=== PATIENT | male | born 1990 | race African-American/Black ===

== ENCOUNTER 2020-07-11 00:20 | Inpatient (IN) | payer MEDICAID ==
[~2020-07-11] VITALS: Ht 190.5 cm; Wt 78.0 kg
[2020-07-11 02:39] LABS: BASOPHILS % 1.6 % (0.0-2.0); EOSINOPHILS % 1.3 % (0.0-5.0); HEMATOCRIT. 39.5 % (42.0-52.0); HEMOGLOBIN. 12.9 g/dL (14.0-18.0); MEAN CORPUSCULAR HEMOGLOBIN 32.7 pg (28.0-32.0); MEAN CORPUSCULAR VOLUME 100.1 fL (80.0-94.0); MEAN PLATELET VOLUME 8.3 fl (7.4-10.4); MONOCYTES % 7.4 % (2.0-8.0); NEUTROPHILS % 55.7 % (40.0-76.0); PLATELET 189 x1000/uL (130-400); RED BLOOD CELL COUNT 3.95 mill/uL (4.7-6.1); RED CELL DISTRIBUTION WIDTH 15.6 % (11.6-14.6)
[2020-07-11 02:45] LABS: CHLORIDE 116 mEq/L (98-107)
[2020-07-11 03:05] LABS: CLARITY URINE CLOUDY (CLEAR); COLOR URINE ORANGE (YELLOW); KETONES URINE NEGATIVE (NEGATIVE); LEUKOCYTE ESTERASE URINE 1+ (NEGATIVE); NITRITE URINE POSITIVE (NEGATIVE); OCCULT BLOOD URINE 3+ (NEGATIVE); PH URINE 5.5 (4.5-8.0); PROTEIN URINE 4+ (NEGATIVE); SPECIFIC GRAVITY URINE 1.041 (1.005-1.030)
[2020-07-11 03:11] LABS: PARTIAL THROMBOPLASTIN TIME 48.1 sec (23.4-31.0)
[2020-07-11] MEDS ORDERED: CEFTRIAXONE 1 G PREMIX 50 ML IV ONE (03:30)
[2020-07-11] MEDS ORDERED: IOHEXOL-350 100 ML BOTTLE ONE (06:43)
[2020-07-11] MEDS ORDERED: ACETAMINOPHEN 325MG TABLET PO PRN (08:30)
[2020-07-11] MEDS ORDERED: ONDANSETRON HCL 4MG/2ML INJ IV PRN (08:30)
[2020-07-11] MEDS ORDERED: FUROSEMIDE 40MG/4ML VIAL IVP SCH (09:00)
[2020-07-11 09:37] LABS: *BARBITURATES SCREEN URINE NEGATIVE (NEGATIVE); *BENZODIAZEPINES SCREEN URINE NEGATIVE (NEGATIVE); *COCAINE SCREEN URINE NEGATIVE (NEGATIVE); METHADONE URINE SCREEN NEGATIVE (NEGATIVE); OPIATES URINE SCREEN NEGATIVE (NEGATIVE); PHENCYCLIDINE URINE SCREEN NEGATIVE (NEGATIVE)
[2020-07-11 09:38] LABS: *AMPHETAMINES SCREEN URINE NEGATIVE (NEGATIVE); CANNABINOID URINE SCREEN NEGATIVE (NEGATIVE)
[2020-07-11 09:50] VITALS: BP 127/94
[2020-07-11 10:41] VITALS: BP 127/94
[2020-07-11] MEDS ORDERED: ASPI-1158 PO (11:26)
[2020-07-11 12:00] VITALS: BP 114/84
[2020-07-11] MEDS ORDERED: GABA-529 PO (13:09)
[2020-07-11] MEDS ORDERED: ESCI5SOL2 PO (13:19)
[2020-07-11] MEDS ORDERED: FOLI-43 PO (13:19)
[2020-07-11] MEDS ORDERED: LEVO75TA7 PO (13:19)
[2020-07-11] MEDS ORDERED: ERGO2000 PO (13:19)
[2020-07-11] MEDS ORDERED: FERR325T6 MT (13:19)
[2020-07-11] MEDS ORDERED: METO-385 PO (13:19)
[2020-07-11] MEDS ORDERED: WARF6TAB22 PO (13:30)
[2020-07-11] MEDS ORDERED: SILV50CR31 TP (13:30)
[2020-07-11 16:00] VITALS: BP 112/83
[2020-07-11 20:00] VITALS: BP 115/84
[2020-07-11] MEDS: FUROSEMIDE 40MG/4ML VIAL IVP SCH (20:22)
[2020-07-11] MEDS: METOPROLOL TARTRATE 25MG TABLET PO SCH (21:23)
[2020-07-12] VITALS: BP 106/54
[2020-07-12 04:00] VITALS: BP 101/52
[2020-07-12] MEDS: CEFTRIAXONE 1,000 MG in DEXTROSE 5% WATER 50 ML IV SCH (04:47)
[2020-07-12] MEDS ORDERED: CEFTRIAXONE 1 G PREMIX 50 ML IV SCH (05:00)
[2020-07-12 05:47] LABS: CHLORIDE 114 mEq/L (98-107)
[2020-07-12 06:14] LABS: BASOPHILS % 1.7 % (0.0-2.0); EOSINOPHILS % 2.2 % (0.0-5.0); HEMATOCRIT. 37.9 % (42.0-52.0); HEMOGLOBIN. 12.5 g/dL (14.0-18.0); LYMPHOCYTES % 25.4 % (20.0-50.0); MEAN CORPUSCULAR HEMOGLOBIN 32.8 pg (28.0-32.0); MEAN CORPUSCULAR VOLUME 99.5 fL (80.0-94.0); MEAN PLATELET VOLUME 8.7 fl (7.4-10.4); NEUTROPHILS % 63.7 % (40.0-76.0); PLATELET 192 x1000/uL (130-400); RED BLOOD CELL COUNT 3.81 mill/uL (4.7-6.1); RED CELL DISTRIBUTION WIDTH 15.5 % (11.6-14.6)
[2020-07-12] MEDS: FUROSEMIDE 40MG/4ML VIAL IVP SCH ×2 (06:28→16:55)
[2020-07-12 07:44] LABS: INR 4.1
[2020-07-12 08:00] VITALS: BP 109/81
[2020-07-12] MEDS: METOPROLOL TARTRATE 25MG TABLET PO SCH ×2 (09:13→21:00)
[2020-07-12] MEDS: ASPIRIN 81MG TABLET PO SCH (11:39)
[2020-07-12 12:00] VITALS: BP 127/60
[2020-07-12 16:00] VITALS: BP 103/81
[2020-07-12] MEDS: SILVER SULFADIAZINE 1% CREAM 25GM TOP SCH ×2 (16:54→23:13)
[2020-07-12] MEDS: HYDROCODONE/ACETAMINOPHEN 5/325MG TABLET PO PRN (16:59)
[2020-07-12 20:00] VITALS: BP 103/76
[2020-07-13] VITALS: BP 98/75
[2020-07-13 04:00] VITALS: BP 105/61
[2020-07-13] MEDS: LEVOTHYROXINE SODIUM 75MCG TABLET PO SCH (05:22)
[2020-07-13] MEDS: CEFTRIAXONE 1,000 MG in DEXTROSE 5% WATER 50 ML IV SCH (05:23)
[2020-07-13] MEDS: FUROSEMIDE 40MG/4ML VIAL IVP SCH ×2 (06:10→18:22)
[2020-07-13 06:52] LABS: CHLORIDE 112 mEq/L (98-107)
[2020-07-13 06:56] LABS: BASOPHILS % 1.5 % (0.0-2.0); EOSINOPHILS % 3.8 % (0.0-5.0); HEMATOCRIT. 38.7 % (42.0-52.0); HEMOGLOBIN. 12.8 g/dL (14.0-18.0); LYMPHOCYTES % 36.3 % (20.0-50.0); MEAN PLATELET VOLUME 8.6 fl (7.4-10.4); MONOCYTES % 8.9 % (2.0-8.0); NEUTROPHILS % 49.5 % (40.0-76.0); PLATELET 171 x1000/uL (130-400); RED BLOOD CELL COUNT 3.87 mill/uL (4.7-6.1); RED CELL DISTRIBUTION WIDTH 15.4 % (11.6-14.6)
[2020-07-13 07:19] LABS: INR 3.8; PROTHROMBIN TIME 37.2 sec (9.6-11.0)
[2020-07-13 08:00] VITALS: BP 103/87
[2020-07-13] MEDS: METOPROLOL TARTRATE 25MG TABLET PO SCH (09:00)
[2020-07-13] MEDS: ASPIRIN 81MG TABLET PO SCH (09:14)
[2020-07-13] MEDS: SILVER SULFADIAZINE 1% CREAM 25GM TOP SCH ×2 (09:17→18:28)
[2020-07-13 12:00] VITALS: BP_SYST 101; BP_SYST 98; BP_DIAS 52; BP_DIAS 60
[2020-07-13] MEDS: HYDROCODONE/ACETAMINOPHEN 5/325MG TABLET PO PRN (15:24)
[2020-07-13 16:00] VITALS: BP 103/67
[2020-07-13 20:00] VITALS: BP 103/72
[2020-07-14] VITALS: BP 105/76
[2020-07-14] MEDS: SILVER SULFADIAZINE 1% CREAM 25GM TOP SCH ×2 (00:05→08:41)
[2020-07-14 04:00] VITALS: BP 107/75
[2020-07-14] MEDS: CEFTRIAXONE 1,000 MG in DEXTROSE 5% WATER 50 ML IV SCH (04:21)
[2020-07-14] MEDS: FUROSEMIDE 40MG/4ML VIAL IVP SCH (06:18)
[2020-07-14 06:47] LABS: EOSINOPHILS % 4.1 % (0.0-5.0); HEMATOCRIT. 34.3 % (42.0-52.0); HEMOGLOBIN. 11.6 g/dL (14.0-18.0); LYMPHOCYTES % 28.7 % (20.0-50.0); MEAN CORPUSCULAR HEMOGLOBIN 32.7 pg (28.0-32.0); MEAN CORPUSCULAR VOLUME 96.8 fL (80.0-94.0); MEAN PLATELET VOLUME 8.4 fl (7.4-10.4); MONOCYTES % 7.1 % (2.0-8.0); NEUTROPHILS % 59.1 % (40.0-76.0); PLATELET 169 x1000/uL (130-400); RED BLOOD CELL COUNT 3.54 mill/uL (4.7-6.1); RED CELL DISTRIBUTION WIDTH 15.1 % (11.6-14.6)
[2020-07-14 07:02] LABS: INR 2.8; PROTHROMBIN TIME 27.6 sec (9.6-11.0)
[2020-07-14 07:18] LABS: CHLORIDE 110 mEq/L (98-107)
[2020-07-14] MEDS: LEVOTHYROXINE SODIUM 75MCG TABLET PO SCH (07:44)
[2020-07-14] MEDS ORDERED: POTA20TA82 MT (08:33)
[2020-07-14] MEDS ORDERED: FURO-151 MT (08:33)
[2020-07-14] MEDS: ASPIRIN 81MG TABLET PO SCH (08:38)
[2020-07-14 08:56] VITALS: BP 107/81
[2020-07-14 12:00] VITALS: BP 106/77
[2020-07-14 12:07] VITALS: BP 109/67
[2020-07-14] MEDS ORDERED: CARV3.1242 MT (12:17)
[2020-07-14] MEDS ORDERED: LOSA25TA26 MT (12:17)
[2020-07-14 13:16] VITALS: BP 109/67
== END 2020-07-14 14:07 | disposition home health service (06) | DRG 720 ==
LOC: ER 00:20 → 7WST 04:59 → EDBEDREQ 05:15 → EDBEDREQTM 05:15 → ENRESERV 07:47 → ER 09:57 → 5WST 07-12 20:47
PROVIDERS: ADMIT Internal Medicine; ATTEND Internal Medicine
PROC: 0JB70ZZ Excision of Back Subcutaneous Tissue and Fascia, Open Approach (ICD-10-PCS; principal; 2020-07-13)
DX: A41.9 Sepsis, unspecified organism (principal); D64.9 Anemia, unspecified; E44.0 Moderate protein-calorie malnutrition; D68.59 Other primary thrombophilia; E87.8 Other disorders of electrolyte and fluid balance, not elsewhere classified; I50.43 Acute on chronic combined systolic (congestive) and diastolic (congestive) heart failure; J96.00 Acute respiratory failure, unspecified whether with hypoxia or hypercapnia; I26.99 Other pulmonary embolism without acute cor pulmonale; N39.0 Urinary tract infection, site not specified; F11.90 Opioid use, unspecified, uncomplicated; Z20.828 Contact with and (suspected) exposure to other viral communicable diseases; I42.9 Cardiomyopathy, unspecified; L89.153 Pressure ulcer of sacral region, stage 3; I31.3 Pericardial effusion (noninflammatory); I25.10 Atherosclerotic heart disease of native coronary artery without angina pectoris; I38 Endocarditis, valve unspecified; I69.351 Hemiplegia and hemiparesis following cerebral infarction affecting right dominant side; I25.2 Old myocardial infarction; Z95.0 Presence of cardiac pacemaker; Z79.01 Long term (current) use of anticoagulants; Z87.891 Personal history of nicotine dependence; Z95.2 Presence of prosthetic heart valve; Z68.21 Body mass index [BMI] 21.0-21.9, adult; Z99.3 Dependence on wheelchair; I95.9 Hypotension, unspecified
CPT/HCPCS: 36415; 71045; 71275; 80048; 80053; 80061; 80305; 81003; 82040; 83735; 83880; 84134; 84443; 84484; 85025; 87015; 87045; 87427; 87449; 87493; 87635; 93005; 93306; 96365; 99285; J0696; J1940; J7060; Q9967